=== PATIENT | female | born 1955 | race Caucasian/White ===

== ENCOUNTER 2024-01-08 13:06 | Emergency (ER) | payer OTHER, MEDICARE ==
[2024-01-08 13:34] VITALS: BP 107/68; PULSE 61; RESP 18; TEMP 97.8; BMI 24.4
[2024-01-08] MEDS ORDERED: DIPHTH,PERTUSS(ACELL),TET 0.5 ML DISP.SYRIN IM ONE ×2 (14:02→14:04)
[2024-01-08] MEDS: DIPHTH,PERTUSS(ACELL),TET 0.5 ML DISP.SYRIN IM ONE (14:05)
== END 2024-01-08 14:08 | disposition home or self-care (01) ==
LOC: FER 13:06
PROC: 0HQFXZZ Repair Right Hand Skin, External Approach (ICD-10-PCS; principal; 2024-01-08)
PROC: 3E0234Z Introduction of Serum, Toxoid and Vaccine into Muscle, Percutaneous Approach (ICD-10-PCS; 2024-01-08)
DX: S61.411A Laceration without foreign body of right hand, initial encounter (principal); W26.0XXA Contact with knife, initial encounter
CPT/HCPCS: 12001-25; 90471; 90715; 99284-25

== ENCOUNTER 2024-01-18 15:07 | Emergency (ER) | payer OTHER, MEDICARE ==
[2024-01-18 15:28] VITALS: BP 120/62; PULSE 88; RESP 18; TEMP 97.8; BMI 24.4
== END 2024-01-18 15:45 | disposition home or self-care (01) ==
LOC: FER 15:07
DX: Z48.02 Encounter for removal of sutures (principal)
CPT/HCPCS: 99281-25